=== PATIENT | female | born 1980 | race Two or more races ===

== ENCOUNTER 2018-08-06 23:56 | Emergency (ER) | payer SELFPAY ==
[~2018-08-06] VITALS: Ht 154.9 cm; Wt 67.3 kg
[2018-08-07 00:43] LABS: INTERNATIONAL NORMALIZED RATIO 0.99 (0.93-1.1); PROTHROMBIN TIME 10.3 Seconds (9.6-11.5)
[2018-08-07 00:45] LABS: ALANINE AMINOTRANSFERASE 93 U/L (12-78); ALBUMIN 3.5 g/dL (3.4-5.0); ANION GAP 6 mmol/L (5-15); CALCIUM 8.2 mg/dL (8.5-10.1); CHLORIDE 108 mmol/L (98-107); CREATININE 0.45 mg/dL (0.55-1.02)
[2018-08-07 00:49] LABS: ALKALINE PHOSPHATASE 94 U/L (45-117); BILIRUBIN,TOTAL 0.9 mg/dL (0.2-1.0); TOTAL PROTEIN 6.9 g/dL (6.4-8.2)
[2018-08-07 00:49] LABS: MICROSCOPIC INDICATED
[2018-08-07 00:51] LABS: BASOPHILS # (AUTO) 0.02 x10^3/uL (0-0.1); BASOPHILS % (AUTO) 0 % (0-1); EOSINOPHILS # (AUTO) 0.21 x10^3/uL (0-0.4); EOSINOPHILS % (AUTO) 2 % (1-7); LYMPHOCYTES # (AUTO) 3.12 x10^3/uL (1-3.4); LYMPHOCYTES % (AUTO) 34 % (22-44); MD SCAN; MEAN CORPUSCULAR HEMOGLOBIN 30.7 pg (27.0-34.8); MEAN CORPUSCULAR HGB CONC 35.2 g/dL (32.4-35.8); MEAN CORPUSCULAR VOLUME 87.3 fL (80-100); MEAN PLATELET VOLUME 8.6 fL (7.4-10.4); MONOCYTES # (AUTO) 0.69 x10^3/uL (0.2-0.8); MONOCYTES % (AUTO) 8 % (2-9); NEUTROPHILS # (AUTO) 5.12 x10^3/uL (1.8-6.8); NEUTROPHILS % (AUTO) 56 % (42-75); PLATELET COUNT 77 x10^3/uL (130-400); RED BLOOD COUNT 4.42 x10^6/uL (3.82-5.3); RED CELL DISTRIBUTION WIDTH 13.6 % (9.6-15.2)
[2018-08-07 00:59] LABS: CULTURE INDICATED? NO
[2018-08-07 02:16] VITALS: BP 112/67
== END 2018-08-07 02:34 | disposition home or self-care (01) ==
LOC: ED 08-07 00:37
DX: D25.9 Leiomyoma of uterus, unspecified (principal)
CPT/HCPCS: 36415; 76830; 80053; 81001; 84702; 85025; 85610; 85730; 99285

== ENCOUNTER 2019-03-28 22:46 | Inpatient (IN) | payer OTHER ==
[~2019-03-28] VITALS: Ht 154.9 cm; Wt 66.5 kg
[2019-03-28] MEDS ORDERED: SODIUM CHLORIDE 0.9% 1,000ML IVBOLUS ONE (23:30)
[2019-03-28 23:46] LABS: ALBUMIN 3.2 g/dL (3.4-5.0); ANION GAP 6 mmol/L (5-15); CALCIUM 7.7 mg/dL (8.5-10.1); CHLORIDE 105 mmol/L (98-107); CREATININE 0.59 mg/dL (0.55-1.02)
[2019-03-28 23:55] LABS: BASOPHILS # (AUTO) 0.04 x10^3/uL (0-0.1); BASOPHILS % (AUTO) 0 % (0-1); EOSINOPHILS # (AUTO) 0.11 x10^3/uL (0-0.4); EOSINOPHILS % (AUTO) 1 % (1-7); LYMPHOCYTES # (AUTO) 3.23 x10^3/uL (1-3.4); LYMPHOCYTES % (AUTO) 22 % (22-44); MD SCAN; MEAN CORPUSCULAR HEMOGLOBIN 30.1 pg (27.0-34.8); MEAN CORPUSCULAR HGB CONC 34.4 g/dL (32.4-35.8); MEAN CORPUSCULAR VOLUME 87.4 fL (80-100); MEAN PLATELET VOLUME 8.5 fL (7.4-10.4); MONOCYTES % (AUTO) 6 % (2-9); NEUTROPHILS # (AUTO) 10.15 x10^3/uL (1.8-6.8); NEUTROPHILS % (AUTO) 70 % (42-75); PLATELET COUNT 51 x10^3/uL (130-400); RED BLOOD COUNT 3.27 x10^6/uL (3.82-5.3); RED CELL DISTRIBUTION WIDTH 13.3 % (9.6-15.2)
[2019-03-29] VITALS (8 sets, daily range): BP systolic 92–149; BP diastolic 46–86
--- NOTE | 2019-03-29 00:50 | NUR ---
VOMITING NAUSEA SINCE FRIDAY, AND HEAVY VAG BLEEDING X TODAY, DENIES per triage note started iv 2 large bore iv ( dr eldridge and this rn ) were insterted iv ns bolus 2 liters in right away bp is still very unstable even though given bolus 2 liters us at bed side ( done ) ekg was completed pt stated having slight chest pain at rt side duirng the us, cxr was done vaginal exam was preformed by dr eldridge and active bleeding was noted per md feather separator was called blood prbc was infusing 1 unit per md order consent was obtained at bed side pt was able to sign on the consent at bed side supporting pt . bp q15 min
--- NOTE | 2019-03-29 00:54 | NUR ---
straight cath was performed sent to lab
[2019-03-29 01:09] LABS: CULTURE INDICATED? YES; MICROSCOPIC INDICATED
[2019-03-29] MEDS ORDERED: FENTANYL PF 100 MCG/2ML ONE (01:57)
[2019-03-29] MEDS ORDERED: MIDAZOLAM 1 MG/ML, 5ML ONE (01:57)
--- NOTE | 2019-03-29 01:59 | NUR ---
pt was transferred to IR after given report to Nayla marrufo blood was done vss was stable
[2019-03-29] MEDS ORDERED: metroNIDAZOLE 500 MG TABLET PO ONE (02:00)
[2019-03-29] MEDS ORDERED: LIDOCAINE-MPF 1%, 5ML ONE (02:04)
--- NOTE | 2019-03-29 02:31 | NUR ---
notifed to md regarding pt's urine trichomonas result positive flagyl was ordered but pt was already in IR will give after pt come back from IR
--- NOTE | 2019-03-29 02:42 | NUR ---
pt will be admitted per md pt is still in IR
[2019-03-29] MEDS ORDERED: SODIUM CHLORIDE 0.9% 1,000 ML IV SCH (02:55)
[2019-03-29] MEDS ORDERED: CALCIUM CARBONATE 500 MG TAB.CHEW PO PRN (03:00)
[2019-03-29] MEDS ORDERED: hydrALAzine 20 MG/ML, 1ML IVPush PRN (03:00)
[2019-03-29] MEDS ORDERED: ACETAMINOPHEN 325 MG TABLET PO PRN (03:00)
[2019-03-29] MEDS ORDERED: KETOROLAC 30 MG/1 ML IVPush STA (03:19)
[2019-03-29] MEDS ORDERED: KETOROLAC 60 MG/2 ML ONE (03:23)
--- NOTE | 2019-03-29 03:30 | NUR ---
received phone from IR for toradol medication pt is still in IR for procedure per Nayla medrano
[2019-03-29] MEDS ORDERED: MORPHINE SULFATE 4 MG/ML, 1ML ONE ×4 (04:25→14:30)
[2019-03-29] MEDS ORDERED: ONDANSETRON 2MG/ML, 2ML ONE ×2 (04:25→08:56)
[2019-03-29] MEDS ORDERED: morphine SULFATE 10 MG/ML, 1ML IVPush ONE (04:30)
[2019-03-29] MEDS ORDERED: ONDANSETRON 2MG/ML, 2ML IVPush ONE (04:30)
[2019-03-29] MEDS ORDERED: NS + 40MEQ KCL 1,000 ML IV ONE (04:39)
[2019-03-29] MEDS ORDERED: PIPERACILLIN/TAZO/PMX 3.375GM 50 ML ONE (04:39)
[2019-03-29] MEDS: PIPERACILLIN/TAZO/PMX 3.375GM 50 ML IV SCH ×4 (04:42→22:46)
[2019-03-29] MEDS: NS + 40MEQ KCL 1,000 ML IV SCH ×3 (04:42→15:56)
[2019-03-29] MEDS ORDERED: metroNIDAZOLE 500 MG TABLET ONE (04:43)
--- NOTE | 2019-03-29 04:58 | NUR ---
straight cath was done for evacuation urine in the bladder d/t IR nurse lidia report ( pt's bladder is full ) pt is strict bed rest at least 6 hrs rt groin has hematoma pressure was applied after given morphine and zofran iv per pt's c/o pain vss stable pt is still awake bp is >140 systolic pt's oxygen is >97% at room air at bed side given call light iv meds was hung ( ns with 40 meq k and zosyn iv ) given oral abx flagyl d/t trichomonas result of urine urine culture is progressive med tele level of care was confirmed
--- NOTE | 2019-03-29 04:58 | NUR ---
changed level of care to med tele after order was received from [facility]
[2019-03-29 05:01] LABS: INTERNATIONAL NORMALIZED RATIO 1.09 (0.93-1.1); PROTHROMBIN TIME 11.4 Seconds (9.6-11.5)
--- NOTE | 2019-03-29 05:15 | NUR ---
given report to niru rae
[2019-03-29] MEDS: IBUPROFEN 200 MG TABLET PO SCH ×4 (06:18→21:13)
[2019-03-29] MEDS ORDERED: morphine SULFATE 10 MG/ML, 1ML IVPush PRN (07:40)
[2019-03-29] MEDS: ONDANSETRON 2MG/ML, 2ML IVPush PRN ×2 (09:02→18:14)
[2019-03-29 09:10] LABS: BASOPHILS # (AUTO) 0.04 x10^3/uL (0-0.1); BASOPHILS % (AUTO) 0 % (0-1); EOSINOPHILS # (AUTO) 0.02 x10^3/uL (0-0.4); EOSINOPHILS % (AUTO) 0 % (1-7); LYMPHOCYTES # (AUTO) 1.93 x10^3/uL (1-3.4); LYMPHOCYTES % (AUTO) 14 % (22-44); MD SCAN; MEAN CORPUSCULAR HEMOGLOBIN 29.4 pg (27.0-34.8); MEAN CORPUSCULAR HGB CONC 33.7 g/dL (32.4-35.8); MEAN CORPUSCULAR VOLUME 87.2 fL (80-100); MEAN PLATELET VOLUME 8.6 fL (7.4-10.4); MONOCYTES # (AUTO) 0.66 x10^3/uL (0.2-0.8); MONOCYTES % (AUTO) 5 % (2-9); NEUTROPHILS # (AUTO) 11.56 x10^3/uL (1.8-6.8); NEUTROPHILS % (AUTO) 81 % (42-75); PLATELET COUNT 57 x10^3/uL (130-400); RED BLOOD COUNT 3.21 x10^6/uL (3.82-5.3); RED CELL DISTRIBUTION WIDTH 12.9 % (9.6-15.2)
[2019-03-29 09:50] LABS: ALBUMIN 2.8 g/dL (3.4-5.0); ANION GAP 7 mmol/L (5-15); CALCIUM 6.8 mg/dL (8.5-10.1); CHLORIDE 110 mmol/L (98-107)
[2019-03-29 09:53] LABS: ALANINE AMINOTRANSFERASE 109 U/L (12-78); ALKALINE PHOSPHATASE 72 U/L (45-117); BILIRUBIN,TOTAL 1.4 mg/dL (0.2-1.0); CREATININE 0.35 mg/dL (0.55-1.02); TOTAL PROTEIN 5.5 g/dL (6.4-8.2)
[2019-03-29] MEDS: morphine SULFATE 10 MG/ML, 1ML IVPush PRN ×2 (10:55→14:32)
[2019-03-29 14:36] LABS: BASOPHILS # (AUTO) 0.04 x10^3/uL (0-0.1); BASOPHILS % (AUTO) 0 % (0-1); EOSINOPHILS # (AUTO) 0.18 x10^3/uL (0-0.4); EOSINOPHILS % (AUTO) 1 % (1-7); LYMPHOCYTES # (AUTO) 2.45 x10^3/uL (1-3.4); LYMPHOCYTES % (AUTO) 16 % (22-44); MD SCAN; MEAN CORPUSCULAR HEMOGLOBIN 30.3 pg (27.0-34.8); MEAN CORPUSCULAR HGB CONC 34.4 g/dL (32.4-35.8); MEAN CORPUSCULAR VOLUME 88.1 fL (80-100); MONOCYTES # (AUTO) 0.74 x10^3/uL (0.2-0.8); MONOCYTES % (AUTO) 5 % (2-9); NEUTROPHILS # (AUTO) 11.71 x10^3/uL (1.8-6.8); NEUTROPHILS % (AUTO) 77 % (42-75); PLATELET COUNT 76 x10^3/uL (130-400); RED BLOOD COUNT 3.24 x10^6/uL (3.82-5.3)
[2019-03-29] MEDS ORDERED: CALCIUM GLUCONATE 4.6 MEQ/10 ML IVPush ONE (16:30)
[2019-03-30 02:21] VITALS: BP 131/79
[2019-03-30] MEDS: IBUPROFEN 200 MG TABLET PO SCH ×3 (03:12→15:28)
[2019-03-30] MEDS: PIPERACILLIN/TAZO/PMX 3.375GM 50 ML IV SCH ×2 (03:49→10:20)
[2019-03-30 05:26] LABS: BASOPHILS # (AUTO) 0.03 x10^3/uL (0-0.1); BASOPHILS % (AUTO) 0 % (0-1); EOSINOPHILS # (AUTO) 0.24 x10^3/uL (0-0.4); EOSINOPHILS % (AUTO) 2 % (1-7); LYMPHOCYTES # (AUTO) 2.65 x10^3/uL (1-3.4); LYMPHOCYTES % (AUTO) 19 % (22-44); MD NO; MEAN CORPUSCULAR HEMOGLOBIN 29.6 pg (27.0-34.8); MEAN CORPUSCULAR HGB CONC 33.8 g/dL (32.4-35.8); MEAN CORPUSCULAR VOLUME 87.3 fL (80-100); MEAN PLATELET VOLUME 8.2 fL (7.4-10.4); MONOCYTES # (AUTO) 0.98 x10^3/uL (0.2-0.8); MONOCYTES % (AUTO) 7 % (2-9); NEUTROPHILS # (AUTO) 9.79 x10^3/uL (1.8-6.8); NEUTROPHILS % (AUTO) 72 % (42-75); PLATELET COUNT 120 x10^3/uL (130-400); RED BLOOD COUNT 3.09 x10^6/uL (3.82-5.3)
[2019-03-30 05:30] LABS: ALANINE AMINOTRANSFERASE 100 U/L (12-78); ALBUMIN 3.4 g/dL (3.4-5.0); ANION GAP 6 mmol/L (5-15); CALCIUM 8.1 mg/dL (8.5-10.1); CHLORIDE 106 mmol/L (98-107)
[2019-03-30 05:32] LABS: ALKALINE PHOSPHATASE 67 U/L (45-117); BILIRUBIN,TOTAL 1.6 mg/dL (0.2-1.0); CREATININE 0.48 mg/dL (0.55-1.02); TOTAL PROTEIN 6.3 g/dL (6.4-8.2)
[2019-03-30 07:18] VITALS: BP 125/77
[2019-03-30 13:10] VITALS: BP 117/77
[2019-03-30] MEDS ORDERED: AMOX1TAB12 PO (15:19)
[2019-03-30] MEDS ORDERED: ACID1TAB7 PO (15:19)
[2019-03-30] MEDS ORDERED: POTASSIUM CHLORIDE 20 MEQ TAB.ER.PRT PO ONE (15:30)
[2019-03-30] MEDS ORDERED: POLYETHYLENE GLYCOL 17 GM PACKET PO ONE (15:30)
[2019-03-30] MEDS ORDERED: LACTOBACILLUS CHEW TABLET PO SCH (16:00)
[2019-03-30] MEDS ORDERED: AMOXICILLIN/CLAV 875-125MG TABLET PO SCH (21:00)
== END 2019-03-30 16:10 | disposition home or self-care (01) | DRG 749 ==
LOC: ED 23:36 → EDIP 03-29 02:38 → 4EST 03-29 05:39 → DCLOUNGE 03-30 16:03
PROVIDERS: ADMIT Family Medicine; ATTEND Internal Medicine
PROC: 04LF3ZU Occlusion of Left Uterine Artery, Percutaneous Approach (ICD-10-PCS; principal; 2019-03-29)
PROC: 04LE3ZT Occlusion of Right Uterine Artery, Percutaneous Approach (ICD-10-PCS; 2019-03-29)
PROC: 30233N1 Transfusion of Nonautologous Red Blood Cells into Peripheral Vein, Percutaneous Approach (ICD-10-PCS; 2019-03-29)
DX: D25.9 Leiomyoma of uterus, unspecified (principal); R57.8 Other shock; A59.9 Trichomoniasis, unspecified; D64.9 Anemia, unspecified; D69.6 Thrombocytopenia, unspecified; E83.51 Hypocalcemia; E86.0 Dehydration; E87.6 Hypokalemia; I10 Essential (primary) hypertension; N93.9 Abnormal uterine and vaginal bleeding, unspecified; R73.9 Hyperglycemia, unspecified; Z90.710 Acquired absence of both cervix and uterus; Z79.899 Other long term (current) drug therapy
CPT/HCPCS: 36415; 37244; 71045; 76830; 76937; 80048; 80053; 81001; 82040; 82330; 82962; 83735; 84100; 84703; 85025; 85610; 86850; 86900; 86923; 87086; 93005; 99156; 99157; C1889; C1894; G0378; J1885; J2250; J2405; J2543; J3010; C1751; C1769; J0610; J2270; J3480; J7030; P9016

== ENCOUNTER 2019-08-13 10:26 | Emergency (ER) | payer MEDICAID, OTHER ==
[~2019-08-13] VITALS: Ht 154.9 cm; Wt 70.0 kg
[~2019-08-13 10:26] MED LIST: ACID1TAB7 PO; AMOX1TAB12 PO
[2019-08-13] MEDS ORDERED: ONDANSETRON 2MG/ML, 2ML IVPush ONE (11:30)
[2019-08-13] MEDS ORDERED: MORPHINE SULFATE 4 MG/ML, 1ML IVPush PRN (11:30)
--- NOTE | 2019-08-13 11:35 | NUR ---
PT IN IMAGING AT THIS TIME.
[2019-08-13 11:39] LABS: BASOPHILS # (AUTO) 0.03 x10^3/uL (0-0.1); BASOPHILS % (AUTO) 0 % (0-1); EOSINOPHILS # (AUTO) 0.26 x10^3/uL (0-0.4); EOSINOPHILS % (AUTO) 3 % (1-7); LYMPHOCYTES # (AUTO) 2.67 x10^3/uL (1-3.4); LYMPHOCYTES % (AUTO) 33 % (22-44); MD NO; MEAN CORPUSCULAR HEMOGLOBIN 31.4 pg (27.0-34.8); MEAN CORPUSCULAR HGB CONC 35.6 g/dL (32.4-35.8); MEAN CORPUSCULAR VOLUME 88.2 fL (80-100); MEAN PLATELET VOLUME 9.1 fL (7.4-10.4); MONOCYTES # (AUTO) 0.54 x10^3/uL (0.2-0.8); MONOCYTES % (AUTO) 7 % (2-9); NEUTROPHILS # (AUTO) 4.67 x10^3/uL (1.8-6.8); NEUTROPHILS % (AUTO) 57 % (42-75); PLATELET COUNT 120 x10^3/uL (130-400); RED BLOOD COUNT 4.45 x10^6/uL (3.82-5.3); RED CELL DISTRIBUTION WIDTH 12.8 % (9.6-15.2)
[2019-08-13 11:47] LABS: ALBUMIN 3.6 g/dL (3.4-5.0); ANION GAP 5 mmol/L (5-15); CALCIUM 7.6 mg/dL (8.5-10.1); CHLORIDE 105 mmol/L (98-107); CREATININE 0.58 mg/dL (0.55-1.02)
[2019-08-13] MEDS ORDERED: ONDANSETRON 2MG/ML, 2ML ONE (11:53)
[2019-08-13] MEDS ORDERED: MORPHINE SULFATE 4 MG/ML, 1ML ONE (11:53)
[2019-08-13] MEDS ORDERED: SODIUM CHLORIDE FLUSH 10ML SYR IVF ONE (12:00)
--- NOTE | 2019-08-13 12:59 | NUR ---
US READ STILL NOT AVAILABLE. CALLED US, STATED THEY WILL GET SCAN IN LINE TO BE READ.
--- NOTE | 2019-08-13 13:48 | NUR ---
PT REPORTS PAIN IS IMPROVED AFTER AIR AND WATER TESTER. PT ASSISTED TO BATHROOM SHE IS FEELING DIZZY. PT ABLE TO TRANSFER ON OWN TO WHEELCHAIR. PT ABLE TO USE TOILET AND WALK TO SINK ON OWN. PT BACK IN BED, BACK ON MONITORS. WILL CONTINUE TO MONITOR. CALL LIGHT WITHIN REACH. PT AT BEDSIDE.
[2019-08-13 14:36] VITALS: BP 124/40
== END 2019-08-13 14:40 | disposition home or self-care (01) ==
LOC: ED 14:20
DX: N83.292 Other ovarian cyst, left side (principal); N92.4 Excessive bleeding in the premenopausal period; D25.0 Submucous leiomyoma of uterus
CPT/HCPCS: 36415; 76830; 80048; 82040; 84702; 85025; 96374; 96375; 99284; J2270; J2405

== ENCOUNTER 2019-11-19 09:00 | Outpatient (CLI) | payer OTHER ==
[2019-11-19] MEDS ORDERED: Iron PO (09:29)
[2019-11-19] MEDS ORDERED: MULT-658 PO (09:29)
[2019-11-19 09:58] LABS: BASOPHILS # (AUTO) 0.03 x10^3/uL (0-0.1); BASOPHILS % (AUTO) 0 % (0-1); EOSINOPHILS # (AUTO) 0.14 x10^3/uL (0-0.4); EOSINOPHILS % (AUTO) 2 % (1-7); LYMPHOCYTES # (AUTO) 2.36 x10^3/uL (1-3.4); LYMPHOCYTES % (AUTO) 35 % (22-44); MD NO; MEAN CORPUSCULAR HEMOGLOBIN 22.8 pg (27.0-34.8); MEAN CORPUSCULAR HGB CONC 31.4 g/dL (32.4-35.8); MEAN CORPUSCULAR VOLUME 72.7 fL (80-100); MEAN PLATELET VOLUME 8.6 fL (7.4-10.4); MONOCYTES # (AUTO) 0.43 x10^3/uL (0.2-0.8); MONOCYTES % (AUTO) 7 % (2-9); NEUTROPHILS # (AUTO) 3.72 x10^3/uL (1.8-6.8); NEUTROPHILS % (AUTO) 56 % (42-75); PLATELET COUNT 291 x10^3/uL (130-400); RED BLOOD COUNT 5.29 x10^6/uL (3.82-5.3); RED CELL DISTRIBUTION WIDTH 17.6 % (9.6-15.2)
[2019-11-19 10:09] LABS: ALBUMIN 3.8 g/dL (3.4-5.0); ANION GAP 9 mmol/L (5-15); CALCIUM 8.8 mg/dL (8.5-10.1); CHLORIDE 102 mmol/L (98-107)
[2019-11-19 10:16] LABS: ALANINE AMINOTRANSFERASE 159 U/L (12-78); ALKALINE PHOSPHATASE 140 U/L (45-117); BILIRUBIN,TOTAL 0.5 mg/dL (0.2-1.0); TOTAL PROTEIN 8.1 g/dL (6.4-8.2)
[2019-11-19 10:17] LABS: CREATININE 0.71 mg/dL (0.55-1.02)
[2019-11-19 10:52] LABS: INTERNATIONAL NORMALIZED RATIO 0.97 (0.93-1.1); PROTHROMBIN TIME 10.3 Seconds (9.6-11.5)
== END 2019-11-19 23:59 | disposition home or self-care (01) ==
LOC: STAR 09:00
PROVIDERS: ATTEND Specialist
DX: Z01.818 Encounter for other preprocedural examination (principal)
CPT/HCPCS: 36415; 80053; 84703; 85025; 85610; 85730

== ENCOUNTER 2019-11-23 08:51 | Day surgery (SDC) | payer OTHER ==
[~2019-11-23] VITALS: Ht 154.9 cm; Wt 67.6 kg
[~2019-11-23 08:51] MED LIST changes: +BUPIVACAINE/PF 0.25% ONE; +Iron PO; +MULT-658 PO
[2019-11-23] MEDS ORDERED: LACTATED RINGERS 1,000 ML IV ONE (09:07)
[2019-11-23] MEDS ORDERED: CEFOTETAN PMX 2GM/50ML 50 ML IV ONE (09:07)
[2019-11-23 09:18] VITALS: BP 134/85
[2019-11-23 09:38] LABS: HCG UR SG 1.014 (1.003-1.030)
[2019-11-23] MEDS ORDERED: MIDAZOLAM 1 MG/ML, 2ML ONE (09:38)
[2019-11-23] MEDS ORDERED: FENTANYL PF 250 MCG/5ML ONE (09:38)
[2019-11-23 10:05] LABS: ALBUMIN 3.5 g/dL (3.4-5.0); ANION GAP 7 mmol/L (5-15); CALCIUM 8.7 mg/dL (8.5-10.1); CHLORIDE 106 mmol/L (98-107)
[2019-11-23 10:09] LABS: ALANINE AMINOTRANSFERASE 138 U/L (12-78); ALKALINE PHOSPHATASE 104 U/L (45-117); BILIRUBIN,TOTAL 1.1 mg/dL (0.2-1.0); CREATININE 0.72 mg/dL (0.55-1.02); TOTAL PROTEIN 7.3 g/dL (6.4-8.2)
[2019-11-23] MEDS ORDERED: PROPOFOL 10 MG/ML, 20ML ONE (11:17)
[2019-11-23] MEDS ORDERED: DEXAMETHASONE 4 MG/ML, 1ML ONE (11:17)
[2019-11-23] MEDS ORDERED: ONDANSETRON 2MG/ML, 2ML ONE (11:17)
[2019-11-23] MEDS ORDERED: SUCCINYLCHOLINE 20 MG/ML, 10ML ONE (11:17)
[2019-11-23] MEDS ORDERED: CEFAZOLIN 1,000 MG ONE (11:17)
[2019-11-23] MEDS ORDERED: ROCURONIUM 10MG/ML,5ML ONE (11:17)
[2019-11-23] MEDS ORDERED: FENTANYL PF 100 MCG/2ML IV PRN (12:00)
[2019-11-23] MEDS ORDERED: HYDROmorphone 1 MG/ML, 1ML INJ IV PRN (12:00)
[2019-11-23] MEDS ORDERED: ALBUTEROL SULFATE 2.5 MG/3 ML NPPB PRN (12:00)
[2019-11-23] MEDS ORDERED: LABETALOL 5MG/ML, 20ML IV PRN (12:00)
[2019-11-23] MEDS ORDERED: OXYcodone 5 MG/5 ML ORAL.SOL UDC PO PRN (12:00)
[2019-11-23] MEDS ORDERED: KETOROLAC 30 MG/1 ML IV PRN (12:00)
[2019-11-23] MEDS ORDERED: METOCLOPRAMIDE 5 MG/ML, 2ML IV PRN (12:00)
[2019-11-23] MEDS ORDERED: MEPERIDINE/PF 25MG/0.5ML IVPush PRN (12:00)
[2019-11-23] MEDS ORDERED: DIAZEPAM 5 MG/ML, 2ML IV PRN ×2 (12:00)
[2019-11-23] MEDS ORDERED: hydrALAzine 20 MG/ML, 1ML IV PRN (12:00)
[2019-11-23] MEDS ORDERED: ONDANSETRON 2MG/ML, 2ML IVPush PRN (12:00)
[2019-11-23] MEDS ORDERED: PROMETHAZINE 25 MG/ML, 1ML IV PRN (12:00)
[2019-11-23] MEDS ORDERED: EPINEPHRINE 1 MG/ML, 1ML INFIL ONE (12:03)
[2019-11-23] MEDS ORDERED: KETOROLAC 30 MG/1 ML ONE (15:10)
[2019-11-23] MEDS ORDERED: FENTANYL PF 100 MCG/2ML ONE (15:10)
[2019-11-23] MEDS ORDERED: OXYcodone 5 MG/5 ML ORAL.SOL UDC ONE (15:11)
[2019-11-23] MEDS ORDERED: PROCHLORPERAZINE 5 MG/ML, 2ML IVPush ONE (17:00)
[2019-11-23] MEDS ORDERED: OXYcodone/APAP 5/325MG TABLET PO PRN (17:00)
[2019-11-23] MEDS ORDERED: ONDANSETRON 2MG/ML, 2ML IVPush ONE (17:00)
== END 2019-11-23 17:50 | disposition home or self-care (01) ==
LOC: OUT 08:51
PROVIDERS: ATTEND Specialist
DX: D25.9 Leiomyoma of uterus, unspecified (principal); N83.8 Other noninflammatory disorders of ovary, fallopian tube and broad ligament; D28.2 Benign neoplasm of uterine tubes and ligaments; N94.10 Unspecified dyspareunia; N92.1 Excessive and frequent menstruation with irregular cycle; I10 Essential (primary) hypertension; Z79.899 Other long term (current) drug therapy
CPT/HCPCS: 36415; 58554; 80053; 81025; 82962; 86850; 86900; 86923; 88307; J0171; J0330; J0690; J1100; J1885; J2250; J2405; J2704; J3010; J3490; J7120; S2900